=== PATIENT | male | born 1965 | race Caucasian/White ===

== ENCOUNTER 2017-02-09 23:58 | Observation (INO) ==
[2017-02-10] MEDS ORDERED: ONDANSETRON 4 MG/2 ML VIAL IV STA (00:27)
[2017-02-10] MEDS ORDERED: NITROGLYCERIN 2% OINT 1 INCH/GM PACK TOP STA (00:27)
[2017-02-10] MEDS ORDERED: MORPHINE 2 MG/1 ML SYRINGE IV STA (00:27)
[2017-02-10] MEDS ORDERED: ALUM/MAG/SIMETH/LIDO VISC 1:1 30 ML BOTTLE PO STA (00:27)
[2017-02-10] MEDS ORDERED: ASPIRIN 325 MG TABLET PO STA (00:27)
[2017-02-10] MEDS ORDERED: KETOROLAC 30 MG/1 ML VIAL IV STA (00:27)
[2017-02-10] MEDS ORDERED: METOPROLOL TARTRATE 25 MG TABLET PO STA (00:27)
--- NOTE | 2017-02-10 00:51 | Emergency Department Note ---
Alexander Armstrong Brittany, am scribing for, and in the presence of, Leighton Garg MD 00:40. Britany Armstrong Charles R, MD, personally performed the services described in this documentation, ascribed by Lisha Munoz in my presence, and it is both accurate and complete . Arrival - Arrival Chief Complaint: Extremity Problem Stated Complaint: left arm hurting bad from elbow down ED Nursing Triage Note: C/C left arm pain from elbow down. 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 Pain relieved with ibuprofen Mode of Arrival: Ambulatory Limitations: No Limitations Source: Patient Time Seen by Provider: 02/10/17 00:16 - History of Present Illness HPI Narrative: This is a 51 y/o white male,who presents to the ED with c/o LUE pain which started earlier today. He states the pain starts at his left elbow and goes down the arm. He denies any diaphoresis, SOB, or dizziness, but notes nausea during the pain. He reports he took Ibuprofen for the pain which appears to have helped. He states he vomited at 2245 tonight after eating chicken nuggets with hot sauce and ice cream with sour cream mixed together. Pt has no other complaints/pain in the ED at this time. Pt denies a PMHx. Pt denies a surgical Hx. Pt has a family medical hx of heart disease. Pt is a current every day smoker. Onset (ago): hour(s) (Started earlier today) Consistency: constant Severity: moderate Allergies/Adverse Reactions: Allergies Allergy/AdvReac Type Severity Reaction Status Date / Time No Known Allergies Allergy Unverified 02/10/17 00:13 Home Medications: Home Medications Medication Instructions Recorded Confirmed Type No Known Home Medications [No 02/10/17 02/10/17 History Known Home Medications] Review of System - Review of System 12 point system: reviewed and no additional remarkable complaints except as stated - Review of System Constitutional: Absent: diaphoresis Cardiovascular: Absent: dyspnea on exertion Gastrointestinal: Present: nausea, vomiting Musculoskeletal: Present: arm pain (Left arm pain ) Neurological: Absent: vertigo Medical,Surgical,& Family Hx - Family History Family History: Reports;: Family Heart Disease - Social History Smoking Status: Current every day smoker Frequency of Alcohol Use: None Type of Drug Use: None Exam Vital Signs: Vital Signs Temperature 98.9 F 02/10/17 00:08 Pulse Rate 84 02/10/17 00:08 Respiratory Rate 16 02/10/17 00:08 Blood Pressure 166/111 02/10/17 00:08 O2 Sat by Pulse Oximetry 96 02/10/17 00:08 - General General appearance: alert, in no apparent distress - Head Head exam: Present: atraumatic, normocephalic, normal inspection - Eye Eye exam: Present: normal appearance, PERRL, EOMI. Absent: conjunctival injection, nystagmus, miosis, mydriasis - ENT ENT exam: Present: normal exam, normal oropharynx, mucous membranes moist, TM's normal bilaterally, normal external ear exam - Neck Neck exam: Present: normal inspection, full ROM, trachea midline. Absent: tenderness, meningismus, lymphadenopathy, thyromegaly - Chest Chest inspection: Present: normal inspection, symmetric chest wall rise. Absent : tenderness, rash, abscess - Respiratory Respiratory exam: Present: rhonchi (Bilateral rhonic ). Absent: normal lung sounds bilaterally, prolonged expiratory phase, rales, respiratory distress, stridor, wheezes - Cardiovascular Cardiovascular exam: Present: regular rate, normal rhythm, normal heart sounds. Absent: murmur, rubs, gallop, clicks, JVD - Abdominal Exam Abdominal exam: Present: soft, normal bowel sounds. Absent: distention, tenderness, guarding, rebound, rigidity - Rectal Exam Rectal exam: Present: deferred - Extremities Exam Extremities exam: Present: normal inspection, full ROM, normal capillary refill. Absent: tenderness, pedal edema, joint swelling, calf tenderness - Back Exam Back exam: Present: normal inspection, full ROM. Absent: tenderness, muscle spasm, rashes - Neurological Exam Neurological exam: Present: alert, oriented X3, CN II-XII intact. Absent: motor sensory deficit - Psychiatric Psychiatric exam: Present: normal affect, normal mood. Absent: depressed, agitated, anxious, flat affect, manic - Skin Skin exam: Present: warm, dry, intact, normal color. Absent: rash, cyanosis, diaphoresis, erythema, pallor, mottled Course - Reevaluation(s) Reevaluation #1: Patient vital signs are better blood pressures lower. Patient has no pain I explained to him what was going on he will be admitted to the hospital for further workup cardiac workup Time: 01:45 - Consultations Consultation #1: Hospitalist will admit patient Time: 01:44 Results - Labs CBC & BMP: 02/10/17 00:29 02/10/17 00:29 Lab Results: I have reviewed the patients labs Critical Care Time Critical Care Time: Yes Total Critical Care Time: 60 Disposition Clinical Impression: Non-ST elevated myocardial infarction, Elevated troponin, Hypertension, Tobacco abuse Case discussed with: patient, patient's family Disposition: Still a Patient Condition: Stable Time of Disposition: 01:45
[2017-02-10] MEDS ORDERED: METOPROLOL TARTRATE 25 MG TABLET ONE (00:52)
[2017-02-10] MEDS ORDERED: NITROGLYCERIN 2% OINT 1 INCH/GM PACK TOP ONE (00:52)
[2017-02-10] MEDS ORDERED: ASPIRIN 325 MG TABLET ONE (00:52)
[2017-02-10] MEDS ORDERED: ONDANSETRON 4 MG/2 ML VIAL ONE (00:52)
[2017-02-10] MEDS ORDERED: MORPHINE 2 MG/1 ML SYRINGE ONE (00:52)
[2017-02-10] MEDS ORDERED: ALUM/MAG/SIMETH/LIDO VISC 1:1 30 ML BOTTLE PO ONE (00:52)
[2017-02-10 01:03] LABS: Basophils % 0.4 % (0.0-0.8); Eosinophils # 0.2 10*3/uL (0.0-0.87); Eosinophils % 1.9 % (0.00-10.9); Hematocrit 43.1 VOL% (42.0-52.0); Hemoglobin 15.5 GM/DL (14.0-18.0); Immature Granulocytes % 0.2 %; Immature Granulocytes Absolute 0.02 #; Lymphocytes # 2.3 10*3/uL (1.4-4.0); Lymphocytes % 26.7 % (21.2-54.2); Mean Corpuscular Hemoglobin 31 PG (27-34); Mean Corpuscular Volume 85.5 FL (87-102); Mean Platelet Volume 9.2 FL (9.6-12.0); Monocytes # 0.7 10*3/uL (0.11-0.8); Monocytes % 8.1 % (1.7-12.7); Neutrophils # 5.3 10*3/uL (1.4-7.4); Neutrophils % 62.7 % (38.7-73.9); Platelet Count 188 T/CUMM (130-400); Red Blood Count 5.04 MC/CUMM (3.8-5.5); Red Cell Distribution Width 11.8 % (9.3-17.3); White Blood Count 8.5 T/CUMM (4-12)
[2017-02-10 01:15] LABS: Barbiturates Screen,Urine Negative (Negative); Benzodiazepines Screen,Urine Negative (Negative); Cannabinoid Screen,Urine Negative (Negative); Opiate Screen,Urine Negative (Negative); Phencyclidine Screen,Urine Negative (Negative)
[2017-02-10 01:16] LABS: D-Dimer <= 0.5 MG/L FEU; INR 0.9; PT Patient Result 9.9 SECS
[2017-02-10 01:22] LABS: Apearance,Urine CLEAR (Clear); Bilirubin,Urine Negative (Negative); Blood, Urine Negative (Negative); Glucose,Urine (UA) Negative (Negative); Ketones,Urine Negative (Negative); Mucus,Urine Occasional /LPF (Occasional); Nitrite,Urine Negative (Negative); Protein,Urine Negative; RBC,Urine <1 /HPF (0-4); Urine Color Yellow (Yellow); Urine Specific Gravity 1.016 (1.001-1.035); Urine Urobilinogen < 2.0 EU/DL (0.2-1.0); WBC,Urine <1 /HPF (0-6)
[2017-02-10 01:26] LABS: Albumin 4.1 G/DL (3.4-5.0); Bilirubin,Total 0.4 MG/DL (0.2-1.0); Calcium 9.7 MG/DL (8.5-10.1); Magnesium 2.2 MG/DL (1.8-2.4); Osmolality,Calculated 276.7 MOS/KG (273-304); Total Protein 7.1 G/DL (6.4-8.3)
[2017-02-10] MEDS ORDERED: ENOXAPARIN 100 MG/ML SYRINGE SUBCUT STA (01:46)
[2017-02-10] MEDS ORDERED: ENOXAPARIN 120 MG/0.8 ML SYRINGE SUBCUT ONE (01:51)
[2017-02-10] MEDS ORDERED: ACETAMINOPHEN 325 MG TABLET PO PRN (02:20)
[2017-02-10] MEDS ORDERED: BISACODYL 5 MG TABLET PO PRN (02:20)
[2017-02-10] MEDS ORDERED: MORPHINE 2 MG/1 ML SYRINGE IV PRN (02:20)
[2017-02-10] MEDS ORDERED: ONDANSETRON 4 MG/2 ML VIAL IV PRN (02:20)
[2017-02-10] MEDS ORDERED: hydrALAZINE 20 MG/1 ML VIAL IV PRN (02:24)
--- NOTE | 2017-02-10 02:27 | Hospitalist History & Physical ---
Assessment and Plan - Time spent with patient Time spent discussing smoking cessation with patient: 3 to 10 minutes (1) Elevated troponin Status: Acute Current Visit: Yes (2) Hypertension Status: Acute Current Visit: Yes (3) Tobacco abuse Status: Acute Current Visit: Yes (4) Family history of coronary artery disease in father Status: Acute Assessment and plan: Plan: Observe on telemetry Serial cardiac enzymes Start aspirin, Lovenox, statin, beta-miky and MARCELA inhibitor Probably has underlying hypertensive heart disease, possible stress test versus cath in the morning, cardiology consulted Current Visit: Yes History of Present Illness Chief complaint: Left arm pain, emesis 1 History of present illness: Mr. Gutierrez is a 51 year old male with no known chronic medical problems other than allergic rhinitis/seasonal allergies, has not seen a doctor in 10-20 years/ no routine health care, is here with constant left upper extremity pain from the elbow down started around 7:30 PM and was about a 6 out of 10 at worst. Chest he did eat some chicken nuggets with hot sauce and some ice cream, felt some discomfort/indigestion and throughout. After that the discomfort subsided. His left arm discomfort persisted, he took ibuprofen 800 mg and the pain is largely subsided along with Nitropaste given in the ER. Blood pressure was elevated on arrival. He is a pack-a-day smoker with the prior history of 2 packs per day for many years. He has a family history of his father having CABG at age 58. He denies frequent GERD symptoms, denies fever chills shortness of breath diaphoresis or diarrhea. Home Medications Medication Instructions Recorded Confirmed Type No Known Home Medications [No 02/10/17 02/10/17 History Known Home Medications] Allergies Allergy/AdvReac Type Severity Reaction Status Date / Time No Known Allergies Allergy Unverified 02/10/17 00:13 Medical,Surgical,& Family Hx - Medical History Cardio: History of: Hypertension (Probable although no formal diagnosis) No history of: CAD HEENT: History of: HEENT Problems (Seasonal allergies, "sinus problems ") Endocrine: No history of: Diabetes Mellitus (NIDDM) Gastrointestinal: No history of: GERD - Surgical History Additional Surgical History: No prior surgery - Family History Family History: Reports;: Family Heart Disease - Social History Smoking Status: Current every day smoker Have you smoked in the last 12 months: Yes Time spent discussing smoking cessation with patient: 3 to 10 minutes Frequency of Alcohol Use: None Type of Drug Use: None Marital Status: Unknown Functional capacity: independent ambulation Review of systems: A 12 point review of systems is negative except as specified in the HPI Exam - Constitutional Vitals: Period Temp Pulse Resp BP Sys/Yeh Pulse Ox Last 24 Hr 98.9 F-98.9 F 84-84 16-16 166-166/111-111 96 Exam: EXAM: CONSTITUTIONAL: non toxic, NAD HEENT: NC, AT, OP benign, JUAN, EOMI CV: RRR no m/g/r RESP: clear B/L, no w/r/r GI: abd soft, NT, ND, +bowel sounds INTEGUMENTARY: no lesions or rash EXTREMITIES: no c/c/e NEURO: no focal deficits PSYCH: unremarkable, A/O x3 Results - Labs CBC & BMP: 02/10/17 00:29 02/10/17 00:29 Lab Results: I have reviewed the past 24 hour labs - EKG EKG shows: sinus rhythm - Diagnostic Findings Procedure: Chest x-ray: image reviewed by me
[2017-02-10] MEDS ORDERED: ENOXAPARIN 120 MG/0.8 ML SYRINGE SUBCUT SCH (02:30)
[2017-02-10] MEDS ORDERED: LORazepam 0.5 MG TABLET PO PRN (03:13)
--- NOTE | 2017-02-10 03:44 | EKG Report ---
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
[2017-02-10 05:48] LABS: Basophils % 0.2 % (0.0-0.8); Eosinophils # 0.1 10*3/uL (0.0-0.87); Eosinophils % 0.6 % (0.00-10.9); Hematocrit 41.6 VOL% (42.0-52.0); Hemoglobin 14.5 GM/DL (14.0-18.0); Immature Granulocytes % 0.4 %; Immature Granulocytes Absolute 0.03 #; Lymphocytes # 1.8 10*3/uL (1.4-4.0); Lymphocytes % 22.8 % (21.2-54.2); Mean Corpuscular HGB Conc 34.9 GM/DL (32-36); Mean Corpuscular Hemoglobin 30 PG (27-34); Mean Corpuscular Volume 86.1 FL (87-102); Mean Platelet Volume 9.2 FL (9.6-12.0); Monocytes # 0.5 10*3/uL (0.11-0.8); Neutrophils # 5.6 10*3/uL (1.4-7.4); Platelet Count 191 T/CUMM (130-400); Red Blood Count 4.83 MC/CUMM (3.8-5.5); Red Cell Distribution Width 11.9 % (9.3-17.3); White Blood Count 8.1 T/CUMM (4-12)
[2017-02-10 06:24] LABS: Calcium 9.4 MG/DL (8.5-10.1); Magnesium 2.5 MG/DL (1.8-2.4); Osmolality,Calculated 279.4 MOS/KG (273-304); Potassium 4.8 MMOL/L (3.5-5.1); Risk Ratio 5.06; VLDL CHOLESTEROL 17.4 MG/DL
--- NOTE | 2017-02-10 06:36 | EKG Report ---
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
--- NOTE | 2017-02-10 06:44 | XRay Report ---
Exam: XR chest 1V portable Date: 02/10/2017 12:28 AM Indication: Chest pain Comparison: None Technical: AP portable Findings: ASVD is present. Mild cardiac enlargement. No obvious infiltrate or effusion. Mediastinum and bony structures are intact. Impression: 1. No acute cardiomegaly pathology with underlying ASVD present. PROCEDURE INTERPRETED AT [facility] DEPARTMENT OF RADIOLOGY Final Report Signed by: Dr. Matt Pedersen
--- NOTE | 2017-02-10 07:30 | EKG Report ---
Stationary ECG Study [facility] Test Date: 02/10/2017 7:31:21 AM Pat Name: JESSE CASTELLANOS Department: Room: 267 Gender: M [address] Magistrate: ELDA : 1965 Requested by: Leighton Landry Order Number: [id number] Reading MD: CASSIE CORNELIUS Intervals [place] Rate: 70 P: 48 [place]: 149 QRS: 9 QRSD: 84 T: 54 QT: 359 QTc: 381 Interpretive Statements SINUS RHYTHM WNL Electronically Signed On 02-10-17 10:04:28 CDT by CASSIE CORNELIUS [email or web address]
--- NOTE | 2017-02-10 08:12 | EKG Report ---
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
--- NOTE | 2017-02-10 08:23 | Cardiology Consult Note ---
<Ann Khan - Last Filed: 02/10/17 07:46> Assessment and Plan - Time spent with patient Time spent with patient: Greater than 30 minutes (1) Left arm pain Status: Acute Assessment and plan: SEE PLAN OF CARE LISTED BELOW. Current Visit: Yes (2) Elevated troponin Status: Acute Assessment and plan: SEE PLAN OF CARE LISTED BELOW. Current Visit: Yes (3) Family history of coronary artery disease in father Status: Chronic Assessment and plan: SEE PLAN OF CARE LISTED BELOW. Current Visit: Yes (4) Hypertension Status: Acute Assessment and plan: SEE PLAN OF CARE LISTED BELOW. Current Visit: Yes (5) Tobacco abuse Status: Chronic Assessment and plan: SEE PLAN OF CARE LISTED BELOW. Current Visit: Yes History of Present Illness - Data of Consult Patient: new to practice Consult date: 02/10/17 Requesting Physician: Van Crystal - Consult Narrative Reason for consult: Left arm pain, positive troponin History of present illness: Putter In: New to cardiology (jeffrey Bazzi) PCP: None Mr. Gutierrez is a 51 year old male without known history of coronary artery disease , not routinely followed by a coldfusion. Patient has cardiac risk factors significant for obesity, sedentary lifestyle, current everyday smoker (reports smoking 1 pack per day for the last 30 years) and family history of premature coronary artery disease (father had CABG at age 57). Patient reports that he does have any known chronic medical problems, does not have any home medications. However, upon arrival to the emergency department patient's blood pressure was noted to be 166/111. It appears that he is newly diagnosed with hypertension. He denies any use of recreational drugs. Patient has never had a cardiology workup. Denies history of cardiac stress testing or heart catheterization in the past. Patient reports that he does not have a primary care physician, has not seen a doctor in over 20 years. Patient was in his usual state of health until yesterday evening around 7:30 when he developed left arm pain. He reports that his left arm began to hurt while he was sitting in the recliner. It hurt from his elbow down. Denies any chest pain, heaviness or tightness. No associated diaphoresis or shortness of breath. Describes his pain as a shooting/stabbing pain that lasted approximately one and a half hours. He is unable to identify any alleviating or aggravating factors. No exertional component. His pain was completely relieved after taking ibuprofen at home. Shortly thereafter, he reports that he ate chicken nuggets with hot sauce, ice cream and a couple coffee all within a 30 minute span. He then became very nauseated and vomited. He reports that he this occurs on a regular basis when he eats these types of foods as he has a significant history of reflux/indigestion. He tells me that he has experienced left arm pain in the past and he feels that this was secondary to sitting on it for a long period of time in the recliner. However, it lasted longer than usual. This concerned him and his girlfriend. Therefore, he presented to the emergency department for further evaluation. Patient has been admitted under hospitalist's service and housed in the telemetry unit. Cardiology has been consulted in order to further evaluate patient's elevated troponin. Of note, patient denies any exertional chest pain, heaviness and tightness. He reports that he can walk long distances without experiencing shortness of breath or chest pain, heaviness or tightness. Patient was seen and examined on the telemetry unit. He is currently without any chest discomfort or left arm pain. EKG does not reveal any significant ST changes. However troponin is mildly elevated (0.202 and 0.373). Negative d- dimer. Hemoglobin A1c 5.6. BNP 5. Patient was seen and examined with Dr. Bazzi. Patient was given the option of left heart catheterization or cardiac stress testing. Patient favored having cardiac stress testing later today. At this point, we will keep patient n.p.o. and plan for cardiac stress testing later this morning in order to further risk stratify patient as patient has several risk factors including obesity, sedentary lifestyle, current everyday smoker and family history of premature coronary artery disease. I will also order echocardiogram in order to assess patient's LV function. Recommend aspirin and beta-blockade to further risk stratify. I will further discuss with Dr. perez and await his additional recommendations. ASSESSMENT/PLAN: 1. LEFT ARM PAIN - This is now resolved. Relieved with ibuprofen at home. Troponin only mildly elevated (0.202 and 0.373). EKG is unremarkable. Patient was without chest pain, heaviness or tightness. No exertional component. At this point, we will keep patient n.p.o. and plan for cardiac stress testing later this morning in order to further risk stratify patient as patient has several risk factors including obesity, sedentary lifestyle, current everyday smoker and family history of premature coronary artery disease. I will also order echocardiogram in order to assess patient's LV function. Recommend aspirin and beta-blockade to further risk stratify. 2. HYPERTENSION, NEW DIAGNOSIS - Beta miky has been added to patient's medication regimen. Will further adjust his medication regimen as needed this hospitalization. 3. ELEVATED TROPONIN - Troponin has been mildly elevated this admission 0.202 and 0.373. Unknown etiology. EKG has been unremarkable. At this point, we will keep patient n.p.o. and he will undergo cardiac stress testing later this morning. 4. TOBACCO ABUSE - Smoking cessation encouraged. 5. FAMILY HISTORY OF PREMATURE CORONARY ARTERY DISEASE - Patient reports a family history of premature coronary artery disease. His father had CABG at age 57. CC: John Stephens MD - Home Medications and Allergies Home Medications: Home Medications Medication Instructions Recorded Confirmed Type No Known Home Medications [No 02/10/17 02/10/17 History Known Home Medications] Allergies/Adverse Reactions: Allergies Allergy/AdvReac Type Severity Reaction Status Date / Time No Known Allergies Allergy Unverified 02/10/17 00:13 - Constitutional Constitutional: Present: headache(s). Absent: chills, fatigue, fever(s), lethargy, malaise, weakness, weight gain, weight loss - Cardiovascular Cardiovascular: Present: radiating jaw, neck or arm pain. Absent: chest pain at rest, chest pain with activity, claudication, diaphoresis, dyspnea, dyspnea on exertion, edema, lightheadedness, orthopnea, palpitations, PND - Respiratory Respiratory: Absent: cough, dyspnea, hemoptysis, dyspnea on exertion, wheezing, snoring, pain on inspiration, change in phlegm color - Gastrointestinal Gastrointestinal: Present: dyspepsia, heartburn, nausea, vomiting. Absent: abdominal pain, change in bowel habits, coffee ground emesis, constipation, hematemesis, hematochezia, loose stools, melena - Neurological Neurological: Absent: abnormal gait, abnormal speech, behavioral changes, dizziness, frequent falls, syncope - Hematologic/Lymphatic Hematologic/Lymphatic: Absent: easy bleeding, easy bruising, lymphadenopathy Medical,Surgical,& Family Hx - Medical History Cardio: History of: Hypertension (Probable although no formal diagnosis) HEENT: History of: HEENT Problems (Seasonal allergies, "sinus problems ") Gastrointestinal: No history of: GERD - Family History Family History: Reports;: Family Heart Disease - Social History Smoking Status: Current every day smoker Frequency of Alcohol Use: None Type of Drug Use: None Marital Status: Single Lives With:: Significant Other Functional capacity: independent ambulation Physical Examination Vital Signs Temp Pulse Resp BP Pulse Ox 98.9 F 84 16 166/111 96 02/10/17 00:08 02/10/17 00:08 02/10/17 00:08 02/10/17 00:08 02/10/17 00:08 Other: General: Appears well with no apparent distress. Pleasant and cooperative. Appears comfortable. HEENT: PERRL, normocephalic, atraumatic. Mucous membranes moist. No jaundice noted. Conjunctiva moist and clear, sclerae anicteric Neck: No JVD/HJR, no thyromegaly or lymphadenopathy noted. No carotid bruit appreciated Cardiac: Regular rate and rhythm. No murmur rub or gallop. Lungs: Clear to auscultation without accessory muscle use to assist the respiratory pattern. Not requiring oxygen. Abdomen: Soft, bowel sounds normoactive. Nontender and nondistended. No abdominal bruit or thrill noted. No masses noted. Extremities: No clubbing, cyanosis noted. No edema noted. Upper extremity pulses 2+. Lower extremity pulses 2+. Capillary refill less than 3 seconds. Skin: No unusual lesions or rashes. No skin breakdown appreciated. Neuro: Awake, alert and oriented 3. Moves all extremities well without hemiparesis or paralysis. No essential tremor is appreciated. Result/EKG - Labs CBC & BMP: 02/10/17 05:37 02/10/17 05:37 Lab Results: I have reviewed the past 24 hour labs Labs: Laboratory Results - last 24 hr 02/10/17 02/10/17 02/10/17 00:29 00:29 00:29 WBC RBC Hgb Hct MCV MCH MCHC RDW Plt Count MPV Neut % (Auto) Lymph % (Auto) [place]wey % (Auto) Eos % (Auto) Baso % (Auto) Neut # (Auto) Lymph # (Auto) [place]wey # (Auto) Eos # (Auto) Baso # (Auto) Immature Gran % Nucleated RBC % Immature Gran # Nucleated RBCs # INR 0.9 PT Patient/Control Mix 9.9 D-Dimer, Quantitative <= 0.5 Sodium Potassium Chloride Carbon Dioxide Anion Gap BUN Creatinine GFR Calculation BUN/Creatinine Ratio Glucose Hemoglobin A1c Calculated Osmolality Calcium Magnesium Total Bilirubin AST ALT Alkaline Phosphatase Troponin I 0.202 H B-Natriuretic Peptide Total Protein Albumin Globulin Albumin/Globulin Ratio Triglycerides Cholesterol LDL Cholesterol VLDL Cholesterol HDL Cholesterol Heart Disease Risk Ratio Lipase Urine Color Yellow Urine Appearance Clear Urine pH 5.0 Ur Specific [place] 1.016 Urine Protein Negative Urine Glucose (UA) Negative Urine Ketones Negative Urine Blood Negative Urine Nitrate Negative Urine Bilirubin Negative Urine Urobilinogen < 2.0 H Urine Leukocytes Negative Urine RBC <1 Urine WBC <1 Urine Mucus Occasional Ur Culture Indicated? Not indicated Urine Opiates Screen Ur Barbiturates Screen Ur Phencyclidine Scrn U Amphetamine/Methamph U Benzodiazepines Scrn U Cocaine Metab Screen U Cannabinoids Screen 02/10/17 02/10/17 02/10/17 00:29 00:29 00:29 WBC RBC Hgb Hct MCV MCH MCHC RDW Plt Count MPV Neut % (Auto) Lymph % (Auto) [place] % (Auto) Eos % (Auto) Baso % (Auto) Neut # (Auto) Lymph # (Auto) [place] # (Auto) Eos # (Auto) Baso # (Auto) Immature Gran % Nucleated RBC % Immature Gran # Nucleated RBCs # INR PT Patient/Control Mix D-Dimer, Quantitative Sodium 138 Potassium 4.0 Chloride 103 Carbon Dioxide 30 Anion Gap 9.0 BUN 14 Creatinine 1.00 GFR Calculation 114 BUN/Creatinine Ratio 14.00 Glucose 116 H Hemoglobin A1c Calculated Osmolality 276.7 Calcium 9.7 Magnesium 2.2 Total Bilirubin 0.40 AST 17 ALT 29 Alkaline Phosphatase 105 Troponin I B-Natriuretic Peptide 5 Total Protein 7.1 Albumin 4.1 Globulin 3.0 Albumin/Globulin Ratio 1.3 Triglycerides Cholesterol LDL Cholesterol VLDL Cholesterol HDL Cholesterol Heart Disease Risk Ratio Lipase 118.0 Urine Color Urine Appearance Urine pH Ur Specific [place] Urine Protein Urine Glucose (UA) Urine Ketones Urine Blood Urine Nitrate Urine Bilirubin Urine Urobilinogen Urine Leukocytes Urine RBC Urine WBC Urine Mucus Ur Culture Indicated? Urine Opiates Screen Negative Ur Barbiturates Screen Negative Ur Phencyclidine Scrn Negative U Amphetamine/Methamph Negative U Benzodiazepines Scrn Negative U Cocaine Metab Screen Negative U Cannabinoids Screen Negative 02/10/17 02/10/17 02/10/17 00:29 05:37 05:37 WBC 8.5 8.1 RBC 5.04 4.83 Hgb 15.5 14.5 Hct 43.1 41.6 L MCV 85.5 L 86.1 L MCH 31 30 MCHC 36.0 34.9 RDW 11.8 11.9 Plt Count 188 191 MPV 9.2 L 9.2 L Neut % (Auto) 62.7 70.0 Lymph % (Auto) 26.7 22.8 Dewey % (Auto) 8.1 6.0 Eos % (Auto) 1.9 0.6 Baso % (Auto) 0.4 0.2 Neut # (Auto) 5.3 5.6 Lymph # (Auto) 2.3 1.8 Dewey # (Auto) 0.7 0.5 Eos # (Auto) 0.2 0.1 Baso # (Auto) 0.0 0.0 Immature Gran % 0.2 0.4 Nucleated RBC % 0.0 0.0 Immature Gran # 0.02 0.03 Nucleated RBCs # 0.00 0.00 INR PT Patient/Control Mix D-Dimer, Quantitative Sodium Potassium Chloride Carbon Dioxide Anion Gap BUN Creatinine GFR Calculation BUN/Creatinine Ratio Glucose Hemoglobin A1c Calculated Osmolality Calcium Magnesium Total Bilirubin AST ALT Alkaline Phosphatase Troponin I 0.373 H D B-Natriuretic Peptide Total Protein Albumin Globulin Albumin/Globulin Ratio Triglycerides Cholesterol LDL Cholesterol VLDL Cholesterol HDL Cholesterol Heart Disease Risk Ratio Lipase Urine Color Urine Appearance Urine pH Ur Specific [place] Urine Protein Urine Glucose (UA) Urine Ketones Urine Blood Urine Nitrate Urine Bilirubin Urine Urobilinogen Urine Leukocytes Urine RBC Urine WBC Urine Mucus Ur Culture Indicated? Urine Opiates Screen Ur Barbiturates Screen Ur Phencyclidine Scrn U Amphetamine/Methamph U Benzodiazepines Scrn U Cocaine Metab Screen U Cannabinoids Screen 02/10/17 02/10/17 05:37 05:37 WBC RBC Hgb Hct MCV MCH MCHC RDW Plt Count MPV Neut % (Auto) Lymph % (Auto) [place] % (Auto) Eos % (Auto) Baso % (Auto) Neut # (Auto) Lymph # (Auto) [place]wey # (Auto) Eos # (Auto) Baso # (Auto) Immature Gran % Nucleated RBC % Immature Gran # Nucleated RBCs # INR PT Patient/Control Mix D-Dimer, Quantitative Sodium 140 Potassium 4.8 Chloride 103 Carbon Dioxide 33 H Anion Gap 8.8 BUN 13 Creatinine 1.10 GFR Calculation 102 BUN/Creatinine Ratio 11.00 Glucose 113 H Hemoglobin A1c 5.6 Calculated Osmolality 279.4 Calcium 9.4 Magnesium 2.5 H Total Bilirubin AST ALT Alkaline Phosphatase Troponin I B-Natriuretic Peptide Total Protein Albumin Globulin Albumin/Globulin Ratio Triglycerides 87 Cholesterol 162 LDL Cholesterol 116.0 VLDL Cholesterol 17.4 HDL Cholesterol 32 L Heart Disease Risk Ratio 5.06 Lipase Urine Color Urine Appearance Urine pH Ur Specific [place] Urine Protein Urine Glucose (UA) Urine Ketones Urine Blood Urine Nitrate Urine Bilirubin Urine Urobilinogen Urine Leukocytes Urine RBC Urine WBC Urine Mucus Ur Culture Indicated? Urine Opiates Screen Ur Barbiturates Screen Ur Phencyclidine Scrn U Amphetamine/Methamph U Benzodiazepines Scrn U Cocaine Metab Screen U Cannabinoids Screen - EKG EKG results: interpreted by me, sinus rhythm <Christiano Bazzi - Last Filed: 02/10/17 08:54> History of Present Illness - Consult Narrative History of present illness: Cardiology addendum Patient examined chart reviewed and discussed with nurse Ann Khan RN. Atypical left arm pain at rest. This patient has no exertional symptoms. EKG normal. Trivial troponin. Blood pressure is elevated 166/111 on presentation. Patient does have cardiac risk factors including tobacco abuse, obesity, hypertension and father had bypass age 57. Regular rhythm. No murmur or gallop. No carotid bruit. Clear lungs. Femoral pulses 2+ without bruit distal pulses 2+ symmetric. Plan Echo Doppler Lexiscan cardiac stress test This patient will require aggressive lifestyle change risk factor modification. Findings and plan discussed with patient and with his girlfriend CC: John Stephens MD Physical Examination Vital Signs Temp Pulse Resp BP Pulse Ox 98.9 F 84 16 166/111 96 02/10/17 00:08 02/10/17 00:08 02/10/17 00:08 02/10/17 00:08 02/10/17 00:08 Result/EKG - Labs CBC & BMP: 02/10/17 05:37 02/10/17 05:37 Labs: Laboratory Results - last 24 hr 02/10/17 02/10/17 02/10/17 00:29 00:29 00:29 WBC RBC Hgb Hct MCV MCH MCHC RDW Plt Count MPV Neut % (Auto) Lymph % (Auto) [place] % (Auto) Eos % (Auto) Baso % (Auto) Neut # (Auto) Lymph # (Auto) [place] # (Auto) Eos # (Auto) Baso # (Auto) Immature Gran % Nucleated RBC % Immature Gran # Nucleated RBCs # INR 0.9 PT Patient/Control Mix 9.9 D-Dimer, Quantitative <= 0.5 Sodium Potassium Chloride Carbon Dioxide Anion Gap BUN Creatinine GFR Calculation BUN/Creatinine Ratio Glucose Hemoglobin A1c Calculated Osmolality Calcium Magnesium Total Bilirubin AST ALT Alkaline Phosphatase Troponin I 0.202 H B-Natriuretic Peptide Total Protein Albumin Globulin Albumin/Globulin Ratio Triglycerides Cholesterol LDL Cholesterol VLDL Cholesterol HDL Cholesterol Heart Disease Risk Ratio Lipase Urine Color Yellow Urine Appearance Clear Urine pH 5.0 Ur Specific [place] 1.016 Urine Protein Negative Urine Glucose (UA) Negative Urine Ketones Negative Urine Blood Negative Urine Nitrate Negative Urine Bilirubin Negative Urine Urobilinogen < 2.0 H Urine Leukocytes Negative Urine RBC <1 Urine WBC <1 Urine Mucus Occasional Ur Culture Indicated? Not indicated Urine Opiates Screen Ur Barbiturates Screen Ur Phencyclidine Scrn U Amphetamine/Methamph U Benzodiazepines Scrn U Cocaine Metab Screen U Cannabinoids Screen 02/10/17 02/10/17 02/10/17 00:29 00:29 00:29 WBC RBC Hgb Hct MCV MCH MCHC RDW Plt Count MPV Neut % (Auto) Lymph % (Auto) [place] % (Auto) Eos % (Auto) Baso % (Auto) Neut # (Auto) Lymph # (Auto) [place] # (Auto) Eos # (Auto) Baso # (Auto) Immature Gran % Nucleated RBC % Immature Gran # Nucleated RBCs # INR PT Patient/Control Mix D-Dimer, Quantitative Sodium 138 Potassium 4.0 Chloride 103 Carbon Dioxide 30 Anion Gap 9.0 BUN 14 Creatinine 1.00 GFR Calculation 114 BUN/Creatinine Ratio 14.00 Glucose 116 H Hemoglobin A1c Calculated Osmolality 276.7 Calcium 9.7 Magnesium 2.2 Total Bilirubin 0.40 AST 17 ALT 29 Alkaline Phosphatase 105 Troponin I B-Natriuretic Peptide 5 Total Protein 7.1 Albumin 4.1 Globulin 3.0 Albumin/Globulin Ratio 1.3 Triglycerides Cholesterol LDL Cholesterol VLDL Cholesterol HDL Cholesterol Heart Disease Risk Ratio Lipase 118.0 Urine Color Urine Appearance Urine pH Ur Specific [place] Urine Protein Urine Glucose (UA) Urine Ketones Urine Blood Urine Nitrate Urine Bilirubin Urine Urobilinogen Urine Leukocytes Urine RBC Urine WBC Urine Mucus Ur Culture Indicated? Urine Opiates Screen Negative Ur Barbiturates Screen Negative Ur Phencyclidine Scrn Negative U Amphetamine/Methamph Negative U Benzodiazepines Scrn Negative U Cocaine Metab Screen Negative U Cannabinoids Screen Negative 02/10/17 02/10/17 02/10/17 00:29 05:37 05:37 WBC 8.5 8.1 RBC 5.04 4.83 Hgb 15.5 14.5 Hct 43.1 41.6 L MCV 85.5 L 86.1 L MCH 31 30 MCHC 36.0 34.9 RDW 11.8 11.9 Plt Count 188 191 MPV 9.2 L 9.2 L Neut % (Auto) 62.7 70.0 Lymph % (Auto) 26.7 22.8 [place]wey % (Auto) 8.1 6.0 Eos % (Auto) 1.9 0.6 Baso % (Auto) 0.4 0.2 Neut # (Auto) 5.3 5.6 Lymph # (Auto) 2.3 1.8 [place]wey # (Auto) 0.7 0.5 Eos # (Auto) 0.2 0.1 Baso # (Auto) 0.0 0.0 Immature Gran % 0.2 0.4 Nucleated RBC % 0.0 0.0 Immature Gran # 0.02 0.03 Nucleated RBCs # 0.00 0.00 INR PT Patient/Control Mix D-Dimer, Quantitative Sodium Potassium Chloride Carbon Dioxide Anion Gap BUN Creatinine GFR Calculation BUN/Creatinine Ratio Glucose Hemoglobin A1c Calculated Osmolality Calcium Magnesium Total Bilirubin AST ALT Alkaline Phosphatase Troponin I 0.373 H D B-Natriuretic Peptide Total Protein Albumin Globulin Albumin/Globulin Ratio Triglycerides Cholesterol LDL Cholesterol VLDL Cholesterol HDL Cholesterol Heart Disease Risk Ratio Lipase Urine Color Urine Appearance Urine pH Ur Specific [place] Urine Protein Urine Glucose (UA) Urine Ketones Urine Blood Urine Nitrate Urine Bilirubin Urine Urobilinogen Urine Leukocytes Urine RBC Urine WBC Urine Mucus Ur Culture Indicated? Urine Opiates Screen Ur Barbiturates Screen Ur Phencyclidine Scrn U Amphetamine/Methamph U Benzodiazepines Scrn U Cocaine Metab Screen U Cannabinoids Screen 02/10/17 02/10/17 05:37 05:37 WBC RBC Hgb Hct MCV MCH MCHC RDW Plt Count MPV Neut % (Auto) Lymph % (Auto) [place] % (Auto) Eos % (Auto) Baso % (Auto) Neut # (Auto) Lymph # (Auto) [place] # (Auto) Eos # (Auto) Baso # (Auto) Immature Gran % Nucleated RBC % Immature Gran # Nucleated RBCs # INR PT Patient/Control Mix D-Dimer, Quantitative Sodium 140 Potassium 4.8 Chloride 103 Carbon Dioxide 33 H Anion Gap 8.8 BUN 13 Creatinine 1.10 GFR Calculation 102 BUN/Creatinine Ratio 11.00 Glucose 113 H Hemoglobin A1c 5.6 Calculated Osmolality 279.4 Calcium 9.4 Magnesium 2.5 H Total Bilirubin AST ALT Alkaline Phosphatase Troponin I B-Natriuretic Peptide Total Protein Albumin Globulin Albumin/Globulin Ratio Triglycerides 87 Cholesterol 162 LDL Cholesterol 116.0 VLDL Cholesterol 17.4 HDL Cholesterol 32 L Heart Disease Risk Ratio 5.06 Lipase Urine Color Urine Appearance Urine pH Ur Specific [place] Urine Protein Urine Glucose (UA) Urine Ketones Urine Blood Urine Nitrate Urine Bilirubin Urine Urobilinogen Urine Leukocytes Urine RBC Urine WBC Urine Mucus Ur Culture Indicated? Urine Opiates Screen Ur Barbiturates Screen Ur Phencyclidine Scrn U Amphetamine/Methamph U Benzodiazepines Scrn U Cocaine Metab Screen U Cannabinoids Screen
[2017-02-10] MEDS ORDERED: LISINOPRIL/HCTZ 10-12.5 MG TABLET PO SCH (09:00)
[2017-02-10] MEDS ORDERED: PANTOPRAZOLE 40 MG TABLET PO SCH (09:00)
[2017-02-10] MEDS ORDERED: ASPIRIN EC 325 MG TABLET PO SCH (09:00)
[2017-02-10] MEDS ORDERED: CARVEDILOL 3.125 MG TABLET PO SCH (09:00)
[2017-02-10 09:40] LABS: Troponin I Only 0.361 NG/ML (0.00-0.045)
--- NOTE | 2017-02-10 11:19 | Event Note ---
Patient underwent nuclear cardiac stress testing earlier this morning. Patient tolerated well and achieved target heart rate Via John protocol. He was without chest pain, heaviness or tightness as well as left arm pain. Mild dyspnea on exertion noted. Mild ST depression noted inferiolaterally. Blood pressure and heart rate responded appropriately to exercise. No arrhythmias, lightheadedness or syncope noted during stress test. Patient now on to final nuclear scan. Dr. Bazzi to read, interpret and advise.
--- NOTE | 2017-02-10 14:25 | ECHO Report ---
Mukul Gutierrez Exam Date: 02/10/2017 08:36 Referring Physician: Technologist: danyelle Jane ARDMS, RVT Age: 51 Ht (in): 69 Wt (lb): 242 Gender: M Exam Location: [facility] Echo Indications: Essential (primary) hypertension, Elevated troponin, Family Hx. CAD, Tobacco use BP: 109 / 63 HR: 67 Rhythm: Sinus Technical Quality: Fair IMPRESSIONS EF 60 %. Grade I/IV diastolic dysfunction (abnormal relaxation filling pattern), normal to mildly elevated filling pressures. Mildly increased right ventricular size. The right atrium is mildly enlarged. The left atrium is mildly enlarged. Morphologically normal mitral valve. No mitral valve regurgitation. The aortic valve is trileaflet and has normal motion. No aortic valve regurgitation. Mild tricuspid valve regurgitation. PAP40 mmHg. Trace pulmonary valve regurgitation. Normal pericardium without effusion. Normal ascending aorta dimension. MEASUREMENTS (Male / Female) Normal Values 2D ECHO LV Diastolic Diameter PLAX 4.6 cm 4.2 - 5.9 / 3.9 - 5.3 cm LV Systolic Diameter PLAX 2.4 cm LV Fractional Shortening PLAX 48.1 % IVS Diastolic Thickness 0.9 cm 0.6 - 1.0 / 0.6 - 0.9 cm LVPW Diastolic Thickness 0.9 cm 0.6 - 1.0 / 0.6 - 0.9 cm RV Internal Dim ED PLAX 2.9 cm Aortic Root Diameter 3.8 cm LA Systolic Diameter LX 4.5 cm 3.0 - 4.0 / 2.7 - 3.8 cm DOPPLER TR Peak Velocity 176.0 cm/s TR Peak Gradient 12.4 mmHg FINDINGS Left Ventricle EF 60 %. Grade I/IV diastolic dysfunction (abnormal relaxation filling pattern), normal to mildly elevated filling pressures. Right Ventricle Mildly increased right ventricular size. Right Atrium The right atrium is mildly enlarged. Left Atrium The left atrium is mildly enlarged. Mitral Valve Morphologically normal mitral valve. No mitral valve regurgitation. Aortic Valve The aortic valve is trileaflet and has normal motion. No aortic valve regurgitation. Tricuspid Valve Morphologically normal tricuspid valve. Mild tricuspid valve regurgitation. PAP40 mmHg. Pulmonic Valve Morphologically normal pulmonic valve. Trace pulmonary valve regurgitation. Pericardium Normal pericardium without effusion. Aorta Normal ascending aorta dimension. Jones Bazzi (Electronically Signed) Final Date: 10 February 2017 14:24
[2017-02-10 15:54] VITALS: BP 117/55
--- NOTE | 2017-02-10 16:36 | Discharge Summary ---
Hospital Course - Hospital Course Hospital Course: The patient was admitted to the hospital with on discomfort. The patient had squeezing discomfort which went down the left arm and also somewhat in the left chest. Troponin and EKG testing was within normal limits. The patient was seen by Dr. Bazzi. Graded exercise tolerance test was performed and did not reveal any evidence of coronary ischemia. The patient feels better and is now ready for discharge home and will follow up with his usual primary care physician. Diagnosis - Discharge Diagnosis (1) Hypertension Status: Chronic (2) Left arm pain Status: Resolved Specialty Discharge - Follow Up or Referrals Discharge Plan - Discharge Data Disposition: Disch To Home/Self Care Condition at Discharge: Stable Discharge Diet: regular diet Activity: resume usual activities as tolerated - Discharge Medications Continue No Known Home Medications [No Known Home Medications] - Follow Up or Referral Follow Up: Your,PCP [Other] - 1 Month - Forms/Instructions Instructions: How to Stop Smoking (GEN), Heart Healthy Diet (GEN) Exam - Constitutional Vitals: Period Temp Pulse Resp BP Sys/Yeh Pulse Ox Last 24 Hr 98 F-99.8 F 67-84 16-20 108-166/55-111 94-100 Discharge Results Procedures and tests throughout hospitalization: Pending Orders 02/10/17 08:27 NM moris perf SPECT rest or str Routine 02/11/17 04:00 BMP w/ Mg [Basic Metabolic Panel w/Mg] IN AM CBC [Comp Blood Count Auto Diff] IN AM 02/12/17 04:00 BMP w/ Mg [Basic Metabolic Panel w/Mg] IN AM CBC [Comp Blood Count Auto Diff] IN AM 02/13/17 04:00 BMP w/ Mg [Basic Metabolic Panel w/Mg] IN AM CBC [Comp Blood Count Auto Diff] IN AM Labs on day of discharge: Labs from last 24 hours 02/10/17 02/10/17 02/10/17 08:18 05:37 05:37 WBC RBC Hgb Hct MCV MCH MCHC RDW Plt Count MPV Neut % (Auto) Lymph % (Auto) Bibb % (Auto) Eos % (Auto) Baso % (Auto) Neut # (Auto) Lymph # (Auto) Bibb # (Auto) Eos # (Auto) Baso # (Auto) Immature Gran % Nucleated RBC % Immature Gran # Nucleated RBCs # INR PT Patient/Control Mix D-Dimer, Quantitative Sodium 140 Potassium 4.8 Chloride 103 Carbon Dioxide 33 H Anion Gap 8.8 BUN 13 Creatinine 1.10 GFR Calculation 102 BUN/Creatinine Ratio 11.00 Glucose 113 H Hemoglobin A1c 5.6 Calculated Osmolality 279.4 Calcium 9.4 Magnesium 2.5 H Total Bilirubin AST ALT Alkaline Phosphatase Total Creatine Kinase 106 CK-MB (CK-2) 2.2 Troponin I 0.361 H B-Natriuretic Peptide Total Protein Albumin Globulin Albumin/Globulin Ratio Triglycerides 87 Cholesterol 162 LDL Cholesterol 116.0 VLDL Cholesterol 17.4 HDL Cholesterol 32 L Heart Disease Risk Ratio 5.06 Lipase Urine Color Urine Appearance Urine pH Ur Specific [place] Urine Protein Urine Glucose (UA) Urine Ketones Urine Blood Urine Nitrate Urine Bilirubin Urine Urobilinogen Urine Leukocytes Urine RBC Urine WBC Urine Mucus Ur Culture Indicated? Urine Opiates Screen Ur Barbiturates Screen Ur Phencyclidine Scrn U Amphetamine/Methamph U Benzodiazepines Scrn U Cocaine Metab Screen U Cannabinoids Screen 02/10/17 02/10/17 02/10/17 05:37 05:37 00:29 WBC 8.1 8.5 RBC 4.83 5.04 Hgb 14.5 15.5 Hct 41.6 L 43.1 MCV 86.1 L 85.5 L MCH 30 31 MCHC 34.9 36.0 RDW 11.9 11.8 Plt Count 191 188 MPV 9.2 L 9.2 L Neut % (Auto) 70.0 62.7 Lymph % (Auto) 22.8 26.7 Bibb % (Auto) 6.0 8.1 Eos % (Auto) 0.6 1.9 Baso % (Auto) 0.2 0.4 Neut # (Auto) 5.6 5.3 Lymph # (Auto) 1.8 2.3 Bibb # (Auto) 0.5 0.7 Eos # (Auto) 0.1 0.2 Baso # (Auto) 0.0 0.0 Immature Gran % 0.4 0.2 Nucleated RBC % 0.0 0.0 Immature Gran # 0.03 0.02 Nucleated RBCs # 0.00 0.00 INR PT Patient/Control Mix D-Dimer, Quantitative Sodium Potassium Chloride Carbon Dioxide Anion Gap BUN Creatinine GFR Calculation BUN/Creatinine Ratio Glucose Hemoglobin A1c Calculated Osmolality Calcium Magnesium Total Bilirubin AST ALT Alkaline Phosphatase Total Creatine Kinase CK-MB (CK-2) Troponin I 0.373 H D B-Natriuretic Peptide Total Protein Albumin Globulin Albumin/Globulin Ratio Triglycerides Cholesterol LDL Cholesterol VLDL Cholesterol HDL Cholesterol Heart Disease Risk Ratio Lipase Urine Color Urine Appearance Urine pH Ur Specific [place] Urine Protein Urine Glucose (UA) Urine Ketones Urine Blood Urine Nitrate Urine Bilirubin Urine Urobilinogen Urine Leukocytes Urine RBC Urine WBC Urine Mucus Ur Culture Indicated? Urine Opiates Screen Ur Barbiturates Screen Ur Phencyclidine Scrn U Amphetamine/Methamph U Benzodiazepines Scrn U Cocaine Metab Screen U Cannabinoids Screen 02/10/17 02/10/17 02/10/17 00:29 00:29 00:29 WBC RBC Hgb Hct MCV MCH MCHC RDW Plt Count MPV Neut % (Auto) Lymph % (Auto) Bibb % (Auto) Eos % (Auto) Baso % (Auto) Neut # (Auto) Lymph # (Auto) Bibb # (Auto) Eos # (Auto) Baso # (Auto) Immature Gran % Nucleated RBC % Immature Gran # Nucleated RBCs # INR PT Patient/Control Mix D-Dimer, Quantitative Sodium 138 Potassium 4.0 Chloride 103 Carbon Dioxide 30 Anion Gap 9.0 BUN 14 Creatinine 1.00 GFR Calculation 114 BUN/Creatinine Ratio 14.00 Glucose 116 H Hemoglobin A1c Calculated Osmolality 276.7 Calcium 9.7 Magnesium 2.2 Total Bilirubin 0.40 AST 17 ALT 29 Alkaline Phosphatase 105 Total Creatine Kinase CK-MB (CK-2) Troponin I B-Natriuretic Peptide 5 Total Protein 7.1 Albumin 4.1 Globulin 3.0 Albumin/Globulin Ratio 1.3 Triglycerides Cholesterol LDL Cholesterol VLDL Cholesterol HDL Cholesterol Heart Disease Risk Ratio Lipase 118.0 Urine Color Urine Appearance Urine pH Ur Specific [place] Urine Protein Urine Glucose (UA) Urine Ketones Urine Blood Urine Nitrate Urine Bilirubin Urine Urobilinogen Urine Leukocytes Urine RBC Urine WBC Urine Mucus Ur Culture Indicated? Urine Opiates Screen Negative Ur Barbiturates Screen Negative Ur Phencyclidine Scrn Negative U Amphetamine/Methamph Negative U Benzodiazepines Scrn Negative U Cocaine Metab Screen Negative U Cannabinoids Screen Negative 02/10/17 02/10/17 02/10/17 00:29 00:29 00:29 WBC RBC Hgb Hct MCV MCH MCHC RDW Plt Count MPV Neut % (Auto) Lymph % (Auto) Bibb % (Auto) Eos % (Auto) Baso % (Auto) Neut # (Auto) Lymph # (Auto) Bibb # (Auto) Eos # (Auto) Baso # (Auto) Immature Gran % Nucleated RBC % Immature Gran # Nucleated RBCs # INR 0.9 PT Patient/Control Mix 9.9 D-Dimer, Quantitative <= 0.5 Sodium Potassium Chloride Carbon Dioxide Anion Gap BUN Creatinine GFR Calculation BUN/Creatinine Ratio Glucose Hemoglobin A1c Calculated Osmolality Calcium Magnesium Total Bilirubin AST ALT Alkaline Phosphatase Total Creatine Kinase CK-MB (CK-2) Troponin I 0.202 H B-Natriuretic Peptide Total Protein Albumin Globulin Albumin/Globulin Ratio Triglycerides Cholesterol LDL Cholesterol VLDL Cholesterol HDL Cholesterol Heart Disease Risk Ratio Lipase Urine Color Yellow Urine Appearance Clear Urine pH 5.0 Ur Specific [place] 1.016 Urine Protein Negative Urine Glucose (UA) Negative Urine Ketones Negative Urine Blood Negative Urine Nitrate Negative Urine Bilirubin Negative Urine Urobilinogen < 2.0 H Urine Leukocytes Negative Urine RBC <1 Urine WBC <1 Urine Mucus Occasional Ur Culture Indicated? Not indicated Urine Opiates Screen Ur Barbiturates Screen Ur Phencyclidine Scrn U Amphetamine/Methamph U Benzodiazepines Scrn U Cocaine Metab Screen U Cannabinoids Screen DS: Provider Date of admission: 02/10/17 02:20 Primary care physician: . No PCP Attending physician on admission: Van Crystal DO Consults: 02/10/17 03:10 Consult to Physician [CONS] Routine Comment: LUE pain, risk factors, smoker, mild Tn elevation Consulting Provider: Consult to Specialist Group: Cardiology When should Consulting Provider be notified: In am 02/10/17 08:53 Consult to Cardiac Rehabilitation [CONS] Routine Reason for Cardiac Rehabilitation: Other Consult Comment: Stemi Report Discharging clinician: John Stephens MD
[2017-02-10] MEDS ORDERED: ATORVASTATIN 80 MG TABLET PO SCH (21:00)
--- NOTE | 2017-02-11 07:09 | Nuclear Medicine Report ---
DATE OF SERVICE: 02/10/2017 REFERRING PHYSICIAN: Van Crystal PROCEDURE: Exercise Cardiolite-gated SPECT perfusion study. INITIAL IMPRESSION: 1. A 51-YEAR-OLD MALE WITH ATYPICAL CHEST PAIN. 2. HYPERTENSION. 3. ABNORMAL ELECTROCARDIOGRAM. FINAL IMPRESSION: NORMAL EXERCISE CARDIOLITE STRESS TEST. I. DESCRIPTION OF PROCEDURE: The patient received 10.0 mCi of Technetium-99m Cardiolite IV and res t images were obtained in the routine manner 20 minutes later. The patient then walked for 9 minutes and 12 seconds on the standard John protocol and achieved a peak heart of 147, which is 86% of his predicted maximal heart rate. At peak exercise, 30.0 mCi of Technetium-99m Cardiolite IV was injecte d and stress images were obtained in the routine manner 20 minutes later. Serial electrocardiograms were performed. The initial blood pressure was 118/80 and it was 146/80 immediate post exercise. II. RESULTS: The patient had no chest pain or arrhythmias and the test was terminated due to shortn ess of breath and fatigue. The resting EKG demonstrates normal sinus rhythm with late transition and ST-T wave changes. With exercise, no diagnostic EKG changes occurred. No arrhythmias. Tomographic imaging demonstrates homogeneous uptake of radioisotope in all segments. There is no boyd dence for ischemia or scar. Gated SPECT imaging demonstrates normal wall motion and thickening in al l segments. The calculated ejection fraction is 63%. III: FINAL IMPRESSION: 1. CLINICALLY AND ELECTROCARDIOGRAPHICALLY NEGATIVE. 2. GOOD WORK CAPACITY. THE PATIENT ACHIEVED 10.1 METS. 3. SCINTIGRAPHICALLY NORMAL PERFUSION STUDY. IV: DISPOSITION: The patient should be reassured regarding the lack of any evidence for significant coronary artery disease at this time. He had no chest pain or diagnostic EKG changes at a high work load, completing 10.1 METS without chest pain or EKG changes and tomographic imaging is normal. In addition, ventricular function is well preserved with ejection fraction of 63%. This is a low-risk s can. Continued medical therapy and risk factor modification recommended. Procedure performed and interpreted at [facility] Department of Radiology.
== END 2017-02-10 18:08 | disposition home or self-care (01) ==
LOC: N.ED 23:58 → N.EDINP 23:58 → SUATTDRO 02-10 02:20 → N.TELES 02-10 03:02
PROVIDERS: ADMIT Internal Medicine; ATTEND Internal Medicine